=== PATIENT | male | born 1995 | race Caucasian/White ===

== ENCOUNTER → 2016-03-21 | Outpatient (CLI) | payer BC, OTHER ==
[~2016-03-21] MED LIST: AMOX875T PO; CEPH500C PO
== END | disposition home or self-care (01) ==
LOC: C.LAB 09:29 → EDSTATUS 09:38

== ENCOUNTER 2016-05-03 22:05 | Emergency (ER) | payer BC ==
[~2016-05-03] VITALS: Ht 188 cm; Wt 83.6 kg
[2016-05-03 22:09] VITALS: Ht 188 cm; Wt 83.6 kg
[2016-05-03] MEDS ORDERED: ONDANSETRON 4MG OD TAB PO STA (22:24)
[2016-05-03] MEDS ORDERED: ACETAMINOPHEN 500 MG TAB PO STA (22:24)
--- NOTE | 2016-05-03 23:14 | DIAGNOSTIC IMAGING REPORT ---
TWO VIEW CHEST CLINICAL HISTORY: Cough and fever. FINDINGS: PA and lateral chest radiographs are obtained. No prior studies are available for comparison at the time of dictation. The cardiomediastinal silhouette is unremarkable. The lungs and pleural spaces are clear. There is no pneumothorax. The bony thorax appears intact. IMPRESSION: No active disease in the chest. Electronically signed by: Bandar Caldwell M.D. 05/03/2016 11:13 PM Dictated Date/Time: 05/03/2016 11:12 PM
[2016-05-03] MEDS ORDERED: AMOX875T PO (23:33)
--- NOTE | 2016-05-03 23:34 | EMERGENCY ROOM VISIT NOTE ---
History First contact with patient: 22:12 Chief Complaint: FEVER Stated Complaint: FEVER, HEADACHE History of Present Illness The patient is a 21 year old male who presents to the Emergency Room with complaints of fever headache and body aches which started at 10 AM this morning. The patient also states that he has felt nauseated but did not vomit. The patient has had some head and chest congestion for the past 4-5 days. He has been coughing up some green phlegm. The patient denies any ear pain or any sore throat. The patient denies any abdominal pain, vomiting or change in bowel habits. The patient denies any urinary symptoms. The patient denies any known exposure to others with similar symptoms. The patient states that he felt very chilled earlier today that he was wearing sweatpants and switch her and had multiple covers and still was cold. He states he did not have a thermometer to take his temperature. The patient denies any history of asthma. Review of Systems 10 system review was performed and was negative unless stated otherwise history of present illness. Past Medical/Surgical History Right big toe surgery Social History Smoking Status: Never Smoker Smokeless Tobacco Use: No Alcohol Use: occasionally Marital Status: single Housing Status: lives with roommate Current/Historical Medications No Active Prescriptions or Reported Meds Allergies Coded Allergies: No Known Allergies (Unverified , 05/03/16) Physical Exam Vital Signs Date Time Temp Pulse Resp B/P Pulse Ox O2 Delivery O2 Flow Rate FiO2 05/03/16 22:09 37.4 102 18 126/79 98 Room Air Physical Exam PHYSICAL EXAM: Vital Signs were reviewed: Temperature 37.4, blood pressure 126/ 79, pulse 102, respiratory rate 18 Reviewed Nurse's notes and agree. Oxygen saturation is 98 % on room air which is normal . GENERAL: 21-year-old male appears in no acute distress. MENTAL STATUS: Alert, oriented, coherent. EARS: Canals clear. TMs good light reflex, no erythema or fluid level noted. NOSE: Nasal mucosa with moderate erythema engorgement. PHARYNX: No erythema, no edema noted. No exudate noted. Airway is adequate. SINUSES: Maxillary sinuses were tender to percussion. Frontal nontender. NECK: Supple, non-tender. No lymphadenopathy noted. LUNGS: Clear to auscultation without wheezes rales or rhonchi. CARDIAC: Regular rate and rhythm without murmur. SKIN: No rashes noted. Medical Decision & Procedures ER Provider Diagnostic Interpretation: TWO VIEW CHEST CLINICAL HISTORY: Cough and fever. FINDINGS: PA and lateral chest radiographs are obtained. No prior studies are available for comparison at the time of dictation. The cardiomediastinal silhouette is unremarkable. The lungs and pleural spaces are clear. There is no pneumothorax. The bony thorax appears intact. IMPRESSION: No active disease in the chest. Electronically signed by: Bandar Caldwell M.D. 05/03/2016 11:13 PM Laboratory Results Test 05/03/16 00:00 Influenza Type A Antigen Neg for Influ A (NEG) Influenza Type B Antigen Neg for Influ B (NEG) Medications Administered Medications (Trade) Dose Ordered Sig/Trinity Route Start Time Stop Time Status Last Admin Dose Admin Acetaminophen (Tylenol Tab) 1,000 mg NOW STAT PO 05/03/16 22:24 05/03/16 22:27 DC 05/03/16 22:35 1,000 MG Ondansetron HCl (Zofran Odt) 4 mg NOW STAT PO 05/03/16 22:24 05/03/16 22:27 DC 05/03/16 22:36 4 MG ED Course The patient was evaluated. The patient was given Tylenol 1 g by mouth for headache. He was also given Zofran 4 mg ODT for nausea. Chest x-ray was ordered and interpreted by the radiologist and myself as above without any acute findings. Rapid influenza was negative for influenza A and influenza B. The patient was reevaluated and stated he was feeling better. The patient was discharged home in stable condition. Medical Decision Differential diagnosis include viral URI, influenza, sinus infection, bronchitis , pneumonia Impression Primary Impression: Acute sinusitis Additional Impression: Nausea Departure Information Dispostion Home / Self-Care Condition GOOD Prescriptions Amoxicillin & Pot Clavulanate (Augmentin 875-125 mg) 1 Tab Tab 1 TAB PO BID for 10 Days, #20 TAB Prov: Mari Hung, RAMÓN 05/03/16 Forms HOME CARE DOCUMENTATION FORM, IMPORTANT VISIT INFORMATION Patient Instructions ED Sinusitis Abx Tx, My [facility] Additional Instructions Tylenol and/or ibuprofen every 6 hours as needed for fever and body aches. Take Augmentin as prescribed. Take Zofran as needed for nausea. If symptoms persist or worsen, follow-up with your family physician. Problem Qualifiers
[2016-05-03 23:43] VITALS: BP 135/69; PULSE 79; TEMP 37; O2SAT 98
[2016-05-03] MEDS ORDERED: ONDANSETRON HOME PACK 4MG OD TAB PO ONE (23:45)
== END 2016-05-03 23:44 | disposition home or self-care (01) ==
LOC: C.EDB 22:07 → C.EDA 23:44
DX: J01.90 Acute sinusitis, unspecified (principal); R11.0 Nausea

== ENCOUNTER 2016-08-01 21:47 | Emergency (ER) | payer OTHER, BC ==
[~2016-08-01] VITALS: Ht 182.9 cm; Wt 85.0 kg
[2016-08-01 21:52] VITALS: TEMP 36.6; Ht 182.9 cm; Wt 85.0 kg
[2016-08-01] MEDS ORDERED: CEPHALEXIN 500MG HOME PACK 1 EA BTL PO ONE (22:15)
[2016-08-01] MEDS ORDERED: CEPH500C PO (22:17)
[2016-08-01 22:30] VITALS: BP 124/70; PULSE 78; O2SAT 98
--- NOTE | 2016-08-02 02:03 | EMERGENCY ROOM VISIT NOTE ---
History First contact with patient: 22:08 Chief Complaint: LACERATION/CUT (SUT/DERMABOND) Stated Complaint: SLICED R ELBOW History of Present Illness The patient is a 21 year old male who presents to the Emergency Room with complaints of laceration to his right elbow that occurred approximately 22 hours ago. The patient states that he was drinking last night, fell, and cut his elbow on a ceramic dish. The patient is reportedly up-to-date on his tetanus. He is able to move the elbow and does not have persistent bleeding, any numbness, or paresthesias. He denies other injury. Review of Systems More than 6 systems were reviewed and otherwise negative with the exception of history of present illness. Past Medical/Surgical History No chronic medical disease Family History No pertinent family history Social History Smoking Status: Never Smoker Alcohol Use: occasionally Marital Status: single Housing Status: lives with roommate Current/Historical Medications Scheduled Cephalexin Monohydrate (Keflex), 500 MG PO TID Allergies Coded Allergies: No Known Allergies (Unverified , 08/01/16) Physical Exam Vital Signs Date Time Temp Pulse Resp B/P (MAP) Pulse Ox O2 Delivery O2 Flow Rate FiO2 08/01/16 22:30 78 18 124/70 98 08/01/16 21:52 36.6 87 18 130/81 99 Room Air Pain Rating (0-10): 0 Physical Exam VITALS: Vitals are noted on the nurse's note and reviewed by myself. Vital signs stable. GENERAL: Well-developed, well-nourished, white male, who is in no acute distress and resting comfortably. Patient is cooperative with the examination. HEAD: Normocephalic atraumatic. MUSCULOSKELETAL: There is a curvilinear 2.0 cm healing laceration over the olecranon of the right elbow. The patient is able to flex and extend against resistance with 5/5 strength. No bleeding or erythema. Neurovascular status is intact. No other injuries noted. NEURO: Patient was alert and oriented to person place and time. CN II through XII grossly intact. Medical Decision & Procedures Medications Administered Medications (Trade) Dose Ordered Sig/Trinity Route Start Time Stop Time Status Last Admin Dose Admin Cephalexin Monohydrate (Keflex 500MG Home Pack) 1 homepack NOW ONCE PO 08/01/16 22:15 08/01/16 22:17 DC 08/01/16 22:35 1 HOMEPACK ED Course Physical exam and history were performed. Nursing notes and EMR were reviewed. Patient appears to have suffered a laceration to his right elbow that occurred nearly 24 hours ago. On examination the wound appears to be healing with good granulation. There is no obvious infection, the wound does not appear dirty. I feel the wound is outside of the appropriate time frame to close this with sutures. This will be allowed to heal as is. The patient will be given a dose of Keflex here in the department as well as a few day course to help prevent infection. The patient was asked to monitor for infection and invited back to the ER with any new, worsening, or concerning symptoms. The chart was completed utilizing [employer] Speech Voice Recognition Software. Grammatical errors, random word insertions, pronoun errors, and incomplete sentences are an occasional consequence of this system due to software limitations, ambient noise, and hardware issues. Any formal questions or concerns about the content, text, or information contained within the body of this dictation should be directly addressed to the provider for clarification. . Medical Decision Different diagnosis includes, but is not limited to: Laceration, abrasion, foreign body, infection, and others Impression Primary Impression: Laceration of elbow Departure Information Dispostion Home / Self-Care Condition GOOD Prescriptions Cephalexin Monohydrate (Keflex) 500 Mg Cap 500 MG PO TID for 5 Days, #15 CAP Prov: Ji Alvarez PA-C 08/01/16 Forms HOME CARE DOCUMENTATION FORM, IMPORTANT VISIT INFORMATION Patient Instructions My [facility] Additional Instructions You were seen and evaluated today on an emergency basis only. This is not a substitute for, or an effort to provide, complete comprehensive medical care. It is not possible to recognize and treat all injuries or illnesses in a single emergency department visit. For this reason it is recommended that you followup with your primary care physician for any ongoing or persistent symptoms. Apply an antibiotic ointment for the next 2-3 days. Cephalexin(Keflex) 500mg: Take one pill 3 times daily for 5 days to prevent skin infection. All antibiotics can cause diarrhea. If this occurs and you feel worse or it does not resolve in 1-2 days follow up with your doctor or return to the Emergency Department as this could be signs of serious underlying problems. Any medication can cause an allergic reaction, stop the pills immediately and return to the ER for rash, hives, breathing difficulties, or swelling. You are welcome to return to the emergency department anytime with new, worsening, or concerning symptoms.
== END 2016-08-01 22:30 | disposition home or self-care (01) ==
LOC: C.EDB 21:48 → C.EDD 22:30
DX: S51.011A Laceration without foreign body of right elbow, initial encounter (principal); W19.XXXA Unspecified fall, initial encounter